=== PATIENT | female | born 1970 | race Caucasian/White ===

== ENCOUNTER 2022-10-04 23:27 | Emergency (ER) | payer OTHER, MEDICAID ==
[~2022-10-04] VITALS: Ht 167.6 cm; Wt 68.9 kg
[2022-10-04 23:35] VITALS: BP_SYST 152
[2022-10-05] MEDS ORDERED: BACITRACIN 1 GM OINT TP ONE (00:08)
--- NOTE | 2022-10-05 00:43 | NUR ---
PT HERE FOR LT THUMB LAC; IRRIGATED; TRIPPLE ABX APPLIED AND WRAPPED. PER PT OKAY TO DC HOME; INSTRUCTED PT TO F/.U WITH PCP; VERBALIZED UNDERSTANDING.
== END 2022-10-05 00:44 | disposition home or self-care (01) ==
LOC: SED 23:27
DX: S61.002A Unspecified open wound of left thumb without damage to nail, initial encounter (principal); Z79.899 Other long term (current) drug therapy; W26.0XXA Contact with knife, initial encounter; Y93.89 Activity, other specified; Y92.89 Other specified places as the place of occurrence of the external cause; Y99.8 Other external cause status
CPT/HCPCS: 99282